=== PATIENT | male | born 1975 | race American Indian/Alaskan Native ===

== ENCOUNTER 2018-08-01 20:11 | Emergency (ER) | payer OTHER ==
[2018-08-01] MEDS ORDERED: BOOSTRIX IM ONE (22:55)
[2018-08-01] MEDS ORDERED: XYLOCAINE 2% INFILTRATI STA (23:58)
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
== END 2018-08-02 01:15 | disposition home or self-care (01) ==
LOC: ED 20:11
DX: S01.312A Laceration without foreign body of left ear, initial encounter (principal); S01.01XA Laceration without foreign body of scalp, initial encounter; Y35.811A Legal intervention involving manhandling, law enforcement official injured, initial encounter; Y93.89 Activity, other specified; Y92.89 Other specified places as the place of occurrence of the external cause; Y99.8 Other external cause status
CPT/HCPCS: 90471; 90715